=== PATIENT | male | born 1955 | race Caucasian/White ===

== ENCOUNTER 2018-03-17 09:48 | Outpatient (CLI) | payer OTHER ==
[2018-03-17 10:24] LABS: #Basophils 0.1 thou/uL (0.0-0.2); #Eosinphils 0.1 thou/uL (0.0-0.7); #Lymphocytes 1.5 thou/uL (1.20-3.40); #Monocytes 0.5 thou/uL (0.11-0.59); #Neutrophils 2.7 thou/uL (1.40-6.50); %Basophils 1.3 % (0.0-1.0); %Eosinophils 2.3 % (0.0-10.0); %Lymphocytes 30.5 % (21.0-51.0); %Neutrophils 55.9 % (42.0-75.0); Mean Corpuscular HGB CONC 33.2 g/dL (32.0-36.0); Mean Corpuscular Hemoglobin 31.2 pg (27.0-31.0); Mean Platelet Volume 7.9 fL (7.4-10.4); Platelet Count 222 thou/uL (130-400); RBC Distribution Width 12.1 % (11.5-14.5); White Blood Cell (WBC) Count 4.9 thou/uL (4.8-10.8)
[2018-03-17 10:52] LABS: ALT (SGPT) 20 U/L (8-55); AST (SGOT) 14 U/L (5-34); Albumin 4.2 g/dL (3.4-4.8); Alkaline Phosphatase 57 U/L (40-150); Anion Gap 13 mmol/L (10-20); BUN (Urea Nitrogen) 10 mg/dL (8.4-25.7); Calc. Creatinine Clearance 0 mL/min (70-130); Calcium 9.4 mg/dL (7.8-10.44); Carbon Dioxide 25 mmol/L (23-31); Cardiac Risk 3.8 (Less than 4.5); Chloride 107 mmol/L (98-107); Cholesterol 208 mg/dl (< 200 Desired); Estimated GFR-MDRD 87; Globulin 2.4 g/dL (2.4-3.5); Glucose 102 mg/dL (80-115); HDL Cholesterol 55 mg/dL (>60 Neg Risk); LDL Cholesterol, Calculated 137 mg/dL; Potassium 4.1 mmol/L (3.5-5.1); Protein, Total 6.6 g/dL (5.8-8.1); Sodium 141 mmol/L (136-145); Triglycerides 80 mg/dL (Less than 150)
== END 2018-03-17 09:49 | disposition home or self-care (01) ==
LOC: MADLABBHPM 09:48
PROVIDERS: ATTEND Family Medicine
DX: Z12.5 Encounter for screening for malignant neoplasm of prostate (principal); Z00.00 Encounter for general adult medical examination without abnormal findings
CPT/HCPCS: 36415; 80053; 80061; 85025; G0103

== ENCOUNTER 2025-02-14 09:21 | Outpatient (CLI) | payer MEDICARE ==
[2025-02-14 09:46] LABS: #Basophils 0.1 thou/uL (0.0-0.2); #Eosinophils 0.1 thou/uL (0.0-0.7); #Lymphocytes 1.3 thou/uL (1.20-3.40); #Monocytes 0.4 thou/uL (0.11-0.59); #Neutrophils 2.4 thou/uL (1.40-6.50); %Basophils 1.7 % (0.0-1.0); %Eosinophils 2.9 % (0.0-10.0); %Lymphocytes 29.6 % (21.0-51.0); %Monocytes 9.0 % (0.0-10.0); %Neutrophils 56.8 % (42.0-75.0); Hematocrit 50.2 % (42.0-52.0); Hemoglobin 16.2 g/dL (14.0-18.0); Mean Corpuscular Hemoglobin 30.5 pg (27.0-31.0); Mean Corpuscular Volume 94.4 fl (78.0-98.0); Platelet Count 236 10x3/uL (130-400); Red Blood Cell (RBC) Count 5.32 mill/uL (4.70-6.10); White Blood Cell (WBC) Count 4.2 10x3/uL (4.8-10.8)
[2025-02-14 10:06] LABS: ALT (SGPT) 22 U/L (Less than 45); AST (SGOT) 19 U/L (11-34); Albumin 4.3 g/dL (3.1-4.5); Alkaline Phosphatase 60 U/L (40-110); Anion Gap 16 mmol/L (10-20); BUN (Urea Nitrogen) 9 mg/dL (8.4-25.7); Bilirubin, Total 0.8 mg/dL (0.3-1.2); Calc. Creatinine Clearance 0 mL/min (70-130); Calcium 9.1 mg/dL (7.8-10.44); Carbon Dioxide 26 mmol/L (23-31); Cardiac Risk 4.3 (Less than 4.5); Chloride 105 mmol/L (98-107); Cholesterol 223 mg/dl (< 200 Desired); Globulin 2.6 g/dL (2.4-3.5); Glucose 101 mg/dL (83-110); HDL Cholesterol 52 mg/dL (>60 Neg Risk); LDL Cholesterol, Calculated 151 mg/dL; Potassium 4.5 mmol/L (3.5-5.1); Sodium 142 mmol/L (136-145); Triglycerides 98 mg/dL (Less than 150)
[2025-02-14 10:20] LABS: Thyroid Stimulating Hormone 1.8209 uIU/mL (0.35-4.94)
[2025-02-14 16:37] LABS: Vitamin D, 25 Hydroxy 29.0 ng/ml (> 30.0)
[2025-02-14 17:22] LABS: Vitamin B12 345.0 pg/mL (211-911)
== END 2025-02-14 09:22 | disposition home or self-care (01) ==
LOC: MADLAB 09:21
PROVIDERS: ATTEND Family Medicine
DX: Z13.6 Encounter for screening for cardiovascular disorders (principal); E55.9 Vitamin D deficiency, unspecified; R53.83 Other fatigue; R73.01 Impaired fasting glucose; Z79.899 Other long term (current) drug therapy
CPT/HCPCS: 36415; 80053; 80061; 82306; 82607; 83036; 84443; 85025